=== PATIENT | female | born 1970 | race African-American/Black ===

== ENCOUNTER 2017-05-17 15:35 | Emergency (ER) | payer MEDICAID ==
[~2017-05-17] VITALS: Ht 160 cm; Wt 53.0 kg
[~2017-05-17 15:35] MED LIST: CHOL500010 PO; CLON1TAB4 PO; DIVA500T PO; FOLI-43 PO; FOLI400T4 PO
[2017-05-17 16:39] LABS: BASOPHILS % 0.5 % (0.0-2.0); EOSINOPHILS % 1.1 % (0.0-5.0); HEMATOCRIT. 30.4 % (36.0-48.0); HEMOGLOBIN. 9.8 g/dL (12.0-16.0); LYMPHOCYTES % 29.5 % (20.0-50.0); MEAN CORPUSCULAR HEMOGLOBIN 31.6 pg (28.0-32.0); MEAN CORPUSCULAR VOLUME 97.6 fL (81.0-99.0); MEAN PLATELET VOLUME 9.3 fl (7.4-10.4); NEUTROPHILS % 59.9 % (40.0-76.0); PLATELET 161 x1000/uL (130-400); RED BLOOD CELL COUNT 3.11 mill/uL (4.2-5.4); RED CELL DISTRIBUTION WIDTH 14.6 % (11.6-14.6)
[2017-05-17 16:43] LABS: CHLORIDE 107 mEq/L (98-107)
[2017-05-17 16:48] LABS: CARBON DIOXIDE 30 mEq/L (21-32)
[2017-05-17 21:33] VITALS: BP 133/85
== END 2017-05-17 21:30 | disposition home or self-care (01) ==
LOC: ER 15:55
DX: G40.409 Other generalized epilepsy and epileptic syndromes, not intractable, without status epilepticus (principal); F79 Unspecified intellectual disabilities
CPT/HCPCS: 36415; 70450; 80048; 85025; 99285